=== PATIENT | female | born 1955 | race Two or more races ===

== ENCOUNTER 2022-02-22 09:43 | Emergency (ER) | payer OTHER ==
[~2022-02-22] VITALS: Ht 162.6 cm; Wt 78.5 kg
[2022-02-22] MEDS ORDERED: COZAAR100 MG PO (10:04)
[2022-02-22] MEDS ORDERED: SERTRALINE20 MG/1 ML PO (10:05)
[2022-02-22] MEDS ORDERED: DILTIAZEM 24HR240 MG PO (10:05)
== END 2022-02-22 11:01 | disposition home or self-care (01) ==
LOC: ER 09:43
DX: I10 Essential (primary) hypertension (principal); F41.9 Anxiety disorder, unspecified; F32.A Depression, unspecified